=== PATIENT | male | born 1990 | race African-American/Black ===

== ENCOUNTER 2016-03-01 07:07 | Emergency (ER) | payer OTHER ==
[~2016-03-01] VITALS: Ht 165.1 cm; Wt 81.7 kg
[~2016-03-01 07:07] MED LIST: AMOXICILLIN875 MG PO; BENADRYL25 MG PO; BENTYL10 MG PO; CLARITIN-D 121 EACH PO; CLEOCIN300 MG PO; FLONASE16 G1 BOTH NARES; KEFLEX500 MG PO; MOTRIN800 MG PO; MUCUS RELIEF600 M1 PO; NAPROXEN500 MG PO; NO HOME MEDS.; NORCO 5/3251 TABLET PO; PERCOCET 5/31 TABLET PO; PREDNISONE50 MG PO; PROAIR HFA8.5 GM IH; PROMETHAZINE HC25 M1 PO; PYRIDIUM200 MG PO; TYLENOL WITH C1 EACH PO; VICODIN 5-3001 EACH PO; ZOFRAN4 MG PO; ZYRTEC10 M2 PO
[2016-03-01] MEDS ORDERED: ZOFRAN ODT4 MG PO (07:45)
[2016-03-01 08:19] VITALS: BP 116/76
== END 2016-03-01 08:20 | disposition home or self-care (01) ==
LOC: EME 07:07
DX: R11.2 Nausea with vomiting, unspecified (principal); R10.11 Right upper quadrant pain; R19.7 Diarrhea, unspecified; F17.200 Nicotine dependence, unspecified, uncomplicated
CPT/HCPCS: 99281; 99284

== ENCOUNTER 2016-05-20 13:17 | Emergency (ER) | payer OTHER ==
[~2016-05-20] VITALS: Ht 165.1 cm; Wt 82.8 kg
[~2016-05-20 13:17] MED LIST changes: +ZOFRAN ODT4 MG PO
[2016-05-20 14:17] LABS: HEMATOCRIT 45.1 % (38.0-50.0); MCH 28.8 PG (29.0-34.0); MCHC 32.8 G/DL (30.0-36.0); MCV 87.9 FL (86-99); PLATELET COUNT 326 K/uL (156-360); RBC DIS.WIDTH-CV 13.4 % (11.8-14.6); RBC DIS.WIDTH-SD 43.3 % (39-53); RED BLOOD COUNT 5.13 M/uL (4.00-5.50); WHITE BLOOD COUNT 9.5 K/uL (4.1-10.2)
[2016-05-20 14:26] LABS: CHLORIDE 103 mEq/L (99-109); POTASSIUM 4.2 mEq/L (3.7-5.4); SODIUM 138 mEq/L (136-147)
[2016-05-20 14:28] LABS: GLUCOSE 86 mg/dL (70-99)
[2016-05-20 14:30] LABS: ANION GAP 11 MEQ/L (2-14); TOTAL BILIRUBIN 0.3 mg/dL (0.0-1.0)
[2016-05-20 14:32] LABS: ALKALINE PHOSPHATASE 86 IU/L (3-129); GFR ESTIMATE (CALCULATED) > 59 mL/min/
[2016-05-20 14:33] LABS: UREA NITROGEN (BUN) 9 mg/dL (9-23)
[2016-05-20 14:35] LABS: LIPASE 219 U/L (1.0-51.0)
[2016-05-20 15:01] LABS: ADD MIUA? NO; BILIRUBIN NEGATIVE; BLOOD NEGATIVE; COLOR STRAW ((YELLOW)); GLUCOSE (STRIP) NEGATIVE; KETONES NEGATIVE; LEUKOCYTES NEGATIVE; NITRITE NEGATIVE; PROTEIN (STRIP) NEGATIVE; SPECIFIC GRAVITY 1.006 (1.000-1.030); UCUL ADDED? NO; UROBILINOGEN 0.2 MG/DL (0.2-1.0)
[2016-05-20 15:17] LABS: AMYLASE 123 IU/L (1-118)
[2016-05-20] MEDS ORDERED: ULTRAM50 MG PO (16:21)
[2016-05-20] MEDS ORDERED: ZANTAC300 MG PO (16:21)
[2016-05-20 16:36] VITALS: BP 128/78
== END 2016-05-20 16:36 | disposition home or self-care (01) ==
LOC: EME 13:17 → RME 13:17
PROVIDERS: Physician Assistant
DX: K85.90 Acute pancreatitis without necrosis or infection, unspecified (principal); R10.13 Epigastric pain; J45.909 Unspecified asthma, uncomplicated; F17.200 Nicotine dependence, unspecified, uncomplicated
CPT/HCPCS: 76705; 80053; 81003; 82150; 83690; 85027; 99281; 99283

== ENCOUNTER 2016-06-02 18:25 | Emergency (ER) | payer OTHER ==
[~2016-06-02] VITALS: Ht 165.1 cm; Wt 81.7 kg
[~2016-06-02 18:25] MED LIST changes: +ULTRAM50 MG PO; +ZANTAC300 MG PO
[2016-06-02 18:44] VITALS: BP 133/84
== END 2016-06-02 21:10 | disposition home or self-care (01) ==
LOC: EME 18:25
DX: S06.0X9A Concussion with loss of consciousness of unspecified duration, initial encounter (principal); R68.84 Jaw pain; Y04.2XXA Assault by strike against or bumped into by another person, initial encounter; F17.200 Nicotine dependence, unspecified, uncomplicated
CPT/HCPCS: 70450; 99281; 99283

== ENCOUNTER 2016-11-02 11:50 | Emergency (ER) | payer SELFPAY ==
[~2016-11-02] VITALS: Ht 165.1 cm; Wt 91.5 kg
[2016-11-02 13:30] LABS: MCH 28.9 PG (29.0-34.0); MCHC 33.3 G/DL (30.0-36.0); MCV 86.8 FL (86-99); MEAN PLAT.VOLUME 10.6 uM^3 (9.0-12.4); PLATELET COUNT 311 K/uL (156-360); RBC DIS.WIDTH-CV 13.2 % (11.8-14.6); RED BLOOD COUNT 4.84 M/uL (4.00-5.50); WHITE BLOOD COUNT 8.2 K/uL (4.1-10.2)
[2016-11-02 13:40] LABS: CHLORIDE 105 mEq/L (99-109); POTASSIUM 4.3 mEq/L (3.7-5.4); SODIUM 140 mEq/L (136-147)
[2016-11-02 13:42] LABS: GLUCOSE 66 mg/dL (70-99)
[2016-11-02 13:44] LABS: ANION GAP 9 MEQ/L (2-14); TOTAL BILIRUBIN 0.5 mg/dL (0.0-1.0)
[2016-11-02 13:46] LABS: ALKALINE PHOSPHATASE 68 IU/L (3-129); GFR ESTIMATE (CALCULATED) > 59 mL/min/
[2016-11-02 13:46] LABS: ADD MIUA? YES; BILIRUBIN NEGATIVE; BLOOD NEGATIVE; COLOR YELLOW ((YELLOW)); GLUCOSE (STRIP) NEGATIVE; KETONES NEGATIVE; LEUKOCYTES TRACE; NITRITE NEGATIVE; PROTEIN (STRIP) NEGATIVE; SPECIFIC GRAVITY 1.019 (1.000-1.030); UROBILINOGEN 0.2 MG/DL (0.2-1.0)
[2016-11-02 13:47] LABS: UREA NITROGEN (BUN) 14 mg/dL (9-23)
[2016-11-02 13:53] LABS: BACTERIA RARE /HPF; EPITHELIAL CELLS RARE /HPF; MUCUS TRACE /LPF; RED BLOOD CELLS 0-5 /HPF (0-5); UCUL ADDED? YES
[2016-11-02] MEDS ORDERED: NAPROSYN500 MG PO (15:30)
[2016-11-02] MEDS ORDERED: ZOFRAN ODT4 MG PO (15:53)
[2016-11-02 16:04] VITALS: BP 142/91
== END 2016-11-02 16:06 | disposition home or self-care (01) ==
LOC: EME 11:50
DX: R10.31 Right lower quadrant pain (principal); F17.200 Nicotine dependence, unspecified, uncomplicated
CPT/HCPCS: 74177; 80053; 81003; 85027; 87086; 99281; 99285; J1885; J2405; J7030

== ENCOUNTER 2017-01-30 06:47 | Emergency (ER) | payer SELFPAY ==
[~2017-01-30] VITALS: Ht 165.1 cm; Wt 94.3 kg
[~2017-01-30 06:47] MED LIST changes: +NAPROSYN500 MG PO
[2017-01-30] MEDS ORDERED: PROVENTIL HFA6.7 GM IH (08:30)
[2017-01-30] MEDS ORDERED: ZITHROMAX Z-PA250 MG PO (08:30)
[2017-01-30] MEDS ORDERED: PREDNISONE50 MG PO (08:30)
[2017-01-30 09:04] VITALS: BP 148/91
== END 2017-01-30 09:04 | disposition home or self-care (01) ==
LOC: EME 06:47
DX: J20.9 Acute bronchitis, unspecified (principal); J45.909 Unspecified asthma, uncomplicated; F17.200 Nicotine dependence, unspecified, uncomplicated
CPT/HCPCS: 71020; 94640; 99281; 99283